=== PATIENT | female | born 1970 | race American Indian/Alaskan Native ===

== ENCOUNTER 2017-09-24 13:24 | Emergency (ER) | payer SELFPAY ==
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
[2017-09-24 19:31] LABS: HCG Qualitative,Urine Negative (Negative)
[2017-09-24 19:34] LABS: Mucus,Urine 3+ /HPF
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
[2017-09-24 21:11] VITALS: BP 113/69
== END 2017-09-24 21:12 | disposition home or self-care (01) ==
LOC: ED 13:24
DX: S16.1XXA Strain of muscle, fascia and tendon at neck level, initial encounter (principal); G43.909 Migraine, unspecified, not intractable, without status migrainosus; J45.909 Unspecified asthma, uncomplicated; Z90.49 Acquired absence of other specified parts of digestive tract; Z88.6 Allergy status to analgesic agent; V49.59XA Passenger injured in collision with other motor vehicles in traffic accident, initial encounter; W22.12XA Striking against or struck by front passenger side automobile airbag, initial encounter; Y93.89 Activity, other specified; Y92.89 Other specified places as the place of occurrence of the external cause; Y99.8 Other external cause status
CPT/HCPCS: 70450; 81015; 81025; 99284